=== PATIENT | female | born 1980 | race Caucasian/White ===

== ENCOUNTER 2017-02-22 12:58 | Emergency (ER) | payer MEDICAID ==
[2017-02-22 13:56] VITALS: BP 123/89
--- NOTE | 2017-02-22 14:10 | UC ---
Lower Extremity/Ankle HPI - HPI Summary HPI Summary: 36 y/o female with 1 days h/o itchy, red legs. H/o varicose veins s/p treatment several years ago, chronic leg swelling worse with standing at work. h/o VV treatment in past. recently treated for bed bugs in house, currently being fumigated. patient is to wear compression stockings at all time however is not able to wear them at work due to heat/ uncomfortable. no fever, chills. - History of Current Complaint Chief Complaint: UCSkin Stated Complaint: LEFT LEG SKIN COMPLAINT Time Seen by Provider: 02/22/17 13:56 Hx Obtained From: Patient Hx Last Menstrual Period: 02/21/17 Onset/Duration: Gradual Onset, Lasting Days Severity Initially: Moderate Severity Currently: Moderate - Allergies/Home Medications Allergies/Adverse Reactions: Allergies Allergy/AdvReac Type Severity Reaction Status Date / Time No Known Allergies Allergy Verified 02/22/17 13:50 PMH/Surg Hx/FS Hx/Imm Hx Previously Healthy: No - varicose veins - Surgical History Surgical History: None - Family History Known Family History: Negative: Diabetes - Social History Alcohol Use: None Substance Use Type: None Smoking Status (MU): Never Smoked Tobacco - Immunization History Most Recent Influenza Vaccination: [id number] Review of Systems Skin: Rash - b/l LEs Psychological: Anxious All Other Systems Reviewed And Are Negative: Yes Physical Exam Triage Information Reviewed: Yes Appearance: Well-Appearing, No Pain Distress, Well-Nourished Vital Signs: Initial Vital Signs Temp 98.4 F 02/22/17 13:52 Pulse 92 02/22/17 13:52 Resp 16 02/22/17 13:52 BP 123/89 02/22/17 13:52 Pulse Ox 97 02/22/17 13:52 Vital Signs Reviewed: Yes Skin: Positive: Other - significany varicose veins b/l LE's with 1+ pitting edema b/l. several areas of erythema, blanching, with associated warmth. no weeping/ drainage noted. PT, DP 2+ b/l, neg homans b/l , Full ROM ankle joint. Lower Extremity Course/Dx - Course Course Of Treatment: LE cellulitis likley d/t venous insufficiency. referal to vascular surgeon vs IR due to patient description of VV extending to upper thigh/ genitalia and severeity. ABX tx - Differential Dx/Diagnosis Differential Diagnosis/HQI/PQRI: Cellulitis, Compartment Syndrome, Infection, Osteomyelitis, Tendonitis Provider Diagnoses: cellulitis, venous insufficiency Discharge - Discharge Plan Condition: Good Disposition: HOME Prescriptions: Cephalexin CAP* [Keflex CAP*] 500 mg PO TID #21 cap Patient Education Materials: Cellulitis (ED), Peripheral Vascular Disease (ED) Forms: *Work Release Referrals: Victorina Park PA [Primary Care Provider] - Andrea Burroughs MD [Medical Doctor] - (Follow up for venous insufficiency, pelvic congestion evaluation ) Additional Instructions: - Elevate legs x 48 hours - Wear compression stockings at all times when standing - Follow up with vascular or interventional radiologist with regards to vein treatments - ANtibiotics as directed for cellulitis - benadryl as needed for itching
== END 2017-02-22 14:25 | disposition home or self-care (01) ==
LOC: UCCORT 12:58
DX: L03.116 Cellulitis of left lower limb (principal); L03.115 Cellulitis of right lower limb; I87.2 Venous insufficiency (chronic) (peripheral); I83.93 Asymptomatic varicose veins of bilateral lower extremities
CPT/HCPCS: 99212; G0463

== ENCOUNTER 2019-07-19 13:04 | Emergency (ER) | payer MEDICAID ==
[2019-07-19 14:16] VITALS: BP 101/57
--- NOTE | 2019-07-19 14:38 | UC ---
Abdominal Pain Female HPI - HPI Summary HPI Summary: 39-year-old female with developmental delay presents with mother reporting onset of fever and right sided abdominal and flank pain yesterday. Temperature at home of 103 F. Denies chest pain, shortness of breath, cough, nausea, vomiting, diarrhea, dysuria, frequency, urgency, hematuria, or vaginal discharge. - History of Current Complaint Chief Complaint: UCAbdominalPain Stated Complaint: LOWER BACK/ABD PAIN,FEVER Time Seen by Provider: 07/19/19 14:25 Hx Obtained From: Patient Hx Last Menstrual Period: 07/09/19 Pain Intensity: 10 Allergies/Adverse Reactions: Allergies Allergy/AdvReac Type Severity Reaction Status Date / Time No Known Allergies Allergy Verified 02/22/17 13:50 PMH/Surg Hx/FS Hx/Imm Hx Respiratory History: Asthma GI/ History: Gastroesophageal Reflux - Surgical History Surgical History: Yes Surgery Procedure, Year, and Place: Bowel obstruction as a child. appendectomy 1994. polyps on throat removed - Family History Known Family History: Positive: Other - Gall bladder disease. - Social History Occupation: Employed Full-time Lives: Alone Alcohol Use: None Substance Use Type: None Smoking Status (MU): Never Smoked Tobacco - Immunization History Most Recent Influenza Vaccination: [id number] Review of Systems All Other Systems Reviewed And Are Negative: Yes Constitutional: Positive: Fever, Chills, Fatigue Skin: Negative: Rash ENT: Negative: Sore Throat, Ear Ache, Nasal Discharge, Sinus Congestion, Sinus Pain/Tenderness Respiratory: Negative: Shortness Of Breath, Cough Cardiovascular: Negative: Chest Pain Gastrointestinal: Positive: Abdominal Pain. Negative: Vomiting, Diarrhea, Nausea Genitourinary: Negative: Dysuria, Hematuria, Frequency, Urgency, Vaginal/Penile Discharge Musculoskeletal: Positive: Negative Neurological: Positive: Negative Is Patient Immunocompromised?: No Physical Exam - Summary Physical Exam Summary: GENERAL APPEARANCE: Well developed, well nourished, alert and cooperative, and appears to be in no acute distress. EYES: Conjunctiva clear. No drainage. EARS: External auditory canals and tympanic membranes clear, hearing grossly intact. NOSE: No nasal discharge. THROAT: Pharynx normal. No tonsilar inflammation, swelling, exudate, or lesions. Uvula midline. NECK: Neck supple, non-tender without lymphadenopathy. CARDIAC: Normal S1 and S2. No S3, S4 or murmurs. Rhythm is regular. There is no peripheral edema, cyanosis or pallor. Extremities are warm and well perfused. Capillary refill is less than 2 seconds. Peripheral pulses intact. LUNGS: Clear to auscultation without rales, rhonchi, wheezing or diminished breath sounds. ABDOMEN: Positive bowel sounds. Soft, nondistended. RUQ and RLQ tenderness without guarding or rebound. No masses or hepatosplenomegally. No CVA tenderness. MUSKULOSKELETAL: ROM intact to all extremities. No joint erythema or tenderness. Normal muscular development. Normal gait. SKIN: Skin normal color, texture and turgor with no lesions or eruptions. Triage Information Reviewed: Yes Vital Signs: Initial Vital Signs Temp 101.8 F 07/19/19 14:07 Pulse 156 07/19/19 14:07 Resp 16 07/19/19 14:07 BP 101/57 07/19/19 14:07 Pulse Ox 95 07/19/19 14:07 Vital Signs Reviewed: Yes Abd Pain Female Course/Dx - Course Course Of Treatment: 39-year-old female with developmental delay presents with mother reporting onset of fever and right sided abdominal and flank pain yesterday. Temperature at home of 103 F. Denies chest pain, shortness of breath, cough, nausea, vomiting, diarrhea, dysuria, frequency, urgency, hematuria, or vaginal discharge. Patient had an elevated temperature of 101.8 F and was tachycardic at a rate of 158. Vital signs were otherwise stable. Patient had a soft nondistended abdomen with tenderness to the right upper and right lower quadrants without guarding or rebound. No CVA tenderness. Discussed with the patient and mother at that with the high fever, tachycardia, and abdominal tenderness I am recommending further evaluation in the ER at this time as I cannot fully evaluate her symptoms at this facility. Patient is agreeable to this and is electing to transport via private vehicle with her mother driving. - Differential Dx/Diagnosis Differential Diagnosis: Gall Bladder Disease, Urinary Tract Infection, Other - gastroenteritis, tuboovarian abscess, sepsis Provider Diagnosis: Fever, Right sided abdominal pain Discharge ED - Sign-Out/Discharge Documenting (check all that apply): Patient Departure All imaging exams completed and their final reports reviewed: No Studies - Discharge Plan Condition: Stable Disposition: HOME-RECOMMEND TO ED Referrals: Radames Raza MD [Primary Care Provider] - Additional Instructions: With your high fever, fast heart rate, and abdominal pain I am recommending that you be evaluated in the emergency room at this time. Go directly to the emergency room from here. Do not eat or drink anything until you have been evaluated. - Billing Disposition and Condition Condition: STABLE Disposition: Home-Recommend to ED - Attestation Statements Provider Attestation: This patient was not seen by me I was available for consult Chart reviewed LIV
== END 2019-07-19 14:51 | disposition home health service (06) ==
LOC: UCCORT 13:04
DX: R50.9 Fever, unspecified (principal); R10.31 Right lower quadrant pain; R10.11 Right upper quadrant pain; J45.909 Unspecified asthma, uncomplicated
CPT/HCPCS: 99212; G0463

== ENCOUNTER 2022-03-26 05:52 | Inpatient (IN) ==
[2022-03-26 06:38] LABS: Hematocrit 35 % (35-47); Hemoglobin 11.9 g/dL (12.0-16.0); Mean Corpuscular HGB Conc 34 g/dL (31-36); Mean Corpuscular Hemoglobin 30 pg (27-31); Mean Corpuscular Volume 87 fL (80-97); Mean Platelet Volume 8.1 fL (7.4-10.4); Platelet Count 202 10^3/uL (150-450); Red Blood Count 4.03 10^6 /uL (3.70-4.87); Red Cell Distribution Width 15 % (10-15); White Blood Count 10.3 10^3/uL (3.5-10.8)
[2022-03-26] MEDS ORDERED: Oxytocin 10 UNITS/ML 1 ML VIAL ONE ×2 (07:18→09:58)
[2022-03-26] MEDS ORDERED: Dexamethasone IV 4 MG/ML VIAL 1 ml VIAL ONE (07:18)
[2022-03-26] MEDS ORDERED: Morphine PF AMP (0.5MG/ML) 5 MG/10 ML AMP ONE (07:18)
[2022-03-26] MEDS ORDERED: fentaNYL 100 mcg/2 ml 50 MCG/ML VIAL ONE (07:18)
[2022-03-26] MEDS ORDERED: Ondansetron 4 mg VIAL 2 MG/ML 2 ml VIAL ONE (07:18)
[2022-03-26] MEDS ORDERED: Sodium Citrate/Citric Acid LIQ 15 ML UDC PO ONE (07:33)
[2022-03-26] MEDS ORDERED: ceFOXitin 2 GM PREMIX 50 ML IVPB ONE (08:00)
[2022-03-26] MEDS ORDERED: Phenylephrine 40 mcg/mL 10mL (400mcg) SYRINGE ONE ×2 (08:10→09:11)
[2022-03-26] MEDS ORDERED: Clindamycin 900 MG/D5W BAG 900 MG/50 ML BAG IVPB ONE ×2 (08:34→11:07)
[2022-03-26] MEDS ORDERED: NS 0.9% IVPB ONE (09:00)
[2022-03-26] MEDS ORDERED: GENTAMICIN ADULT IVPB ONE (09:00)
[2022-03-26] MEDS ORDERED: Acetaminophen IV 1 GM/100ML 1,000 MG/100 ML BAG IV ONE (09:58)
[2022-03-26] MEDS ORDERED: Witch Hazel PAD JAR TOPICAL PRN (10:37)
[2022-03-26] MEDS ORDERED: Glycerin ADULT 2.4 gm SUPP PR PRN (10:37)
[2022-03-26] MEDS ORDERED: Dibucaine 1% OINT 28.35 GM TUBE PR PRN (10:37)
[2022-03-26] MEDS ORDERED: Lactated Ringers 1000 ml BAG 1,000 ML IV SCH (11:00)
[2022-03-26 12:27] LABS: Urine Benzodiazepine Screen None Detected (None Detect); Urine Opiates Screen None Detected (None Detect)
[2022-03-26 12:28] LABS: Urine Appearance Clear; Urine Bilirubin Negative (Negative); Urine Blood Negative (Negative); Urine Color Yellow; Urine Glucose Negative (Negative); Urine Ketones Negative (Negative); Urine Specific Gravity 1.015 (1.005-1.030)
[2022-03-26 12:29] LABS: Urine Nitrite Negative (Negative); Urine Protein Negative (Negative); Urine Urobilinogen 0.2 (Negative) (Negative)
[2022-03-26 12:48] LABS: Activated Partial Thrombo Time 26.8 seconds (26.0-38.0); INR 0.91 (0.89-1.11)
[2022-03-26 12:53] LABS: Hematocrit 35 % (35-47); Hemoglobin 11.3 g/dL (12.0-16.0); Mean Corpuscular HGB Conc 33 g/dL (31-36); Mean Corpuscular Hemoglobin 28 pg (27-31); Mean Corpuscular Volume 86 fL (80-97); Mean Platelet Volume 7.8 fL (7.4-10.4); Platelet Count 191 10^3/uL (150-450); Red Blood Count 4.04 10^6 /uL (3.70-4.87); Red Cell Distribution Width 15 % (10-15); White Blood Count 16.7 10^3/uL (3.5-10.8)
[2022-03-26] MEDS ORDERED: Naloxone 0.4 mg VIAL 0.4 mg/ml 1 ml VIAL IV PUSH PRN (14:21)
[2022-03-26] MEDS ORDERED: Acetaminophen IV 1 GM/100ML 1,000 MG/100 ML BAG IV PRN (14:21)
[2022-03-26] MEDS ORDERED: Ondansetron 4 mg VIAL 2 MG/ML 2 ml VIAL IV PRN (14:21)
[2022-03-26] MEDS ORDERED: Metoclopramide 5 MG/ML VIAL (10 mg) IV PRN (14:21)
[2022-03-27 06:41] LABS: ABS Eosinophils 0.1 10^3/ul (0-0.6); ABS Monocytes 0.9 10^3/ul (0-0.8); ABS Neutrophils 10.3 10^3/ul (1.5-7.7); Eosinophil % 0.7 %; Hematocrit 28 % (35-47); Hemoglobin 9.6 g/dL (12.0-16.0); Lymphocyte % 8.2 %; Mean Corpuscular HGB Conc 34 g/dL (31-36); Mean Corpuscular Hemoglobin 29 pg (27-31); Mean Corpuscular Volume 86 fL (80-97); Mean Platelet Volume 7.8 fL (7.4-10.4); Platelet Count 164 10^3/uL (150-450); Red Blood Count 3.28 10^6 /uL (3.70-4.87); Red Cell Distribution Width 14 % (10-15); White Blood Count 12.3 10^3/uL (3.5-10.8)
[2022-03-28] MEDS ORDERED: Lorazepam PYXIS KEY PRN (08:53)
[2022-03-28] MEDS ORDERED: LORazepam 2 mg VIAL 1 ml IV PUSH ONE (08:53)
[2022-03-28] MEDS ORDERED: Ondansetron 4 mg VIAL 2 MG/ML 2 ml VIAL IV ONE (08:54)
[2022-03-28] MEDS ORDERED: Lactated Ringers 1000 ml BAG 1,000 ML IV SCH (09:00)
[2022-03-28 13:55] LABS: ABS Eosinophils 0.1 10^3/ul (0-0.6); ABS Lymphocytes 0.7 10^3/ul (1.0-4.8); ABS Monocytes 0.6 10^3/ul (0-0.8); ABS Neutrophils 7.6 10^3/ul (1.5-7.7); Eosinophil % 0.7 %; Hematocrit 29 % (35-47); Hemoglobin 9.8 g/dL (12.0-16.0); Lymphocyte % 8.2 %; Mean Corpuscular HGB Conc 34 g/dL (31-36); Mean Corpuscular Hemoglobin 29 pg (27-31); Mean Corpuscular Volume 85 fL (80-97); Mean Platelet Volume 7.6 fL (7.4-10.4); Platelet Count 210 10^3/uL (150-450); Red Blood Count 3.34 10^6 /uL (3.70-4.87); Red Cell Distribution Width 15 % (10-15)
[2022-03-28] MEDS: Acetaminophen IV 1 GM/100ML 1,000 MG/100 ML BAG IV SCH ×2 (14:09→22:13)
[2022-03-28 14:32] LABS: Calcium 8.7 mg/dL (8.6-10.3); Potassium 3.7 mmol/L (3.5-5.0); eGFR CKD-EPI 114.4 (>60)
[2022-03-28] MEDS: Ondansetron 4 mg VIAL 2 MG/ML 2 ml VIAL IV PRN ×2 (15:00→20:50)
[2022-03-29] MEDS: Acetaminophen IV 1 GM/100ML 1,000 MG/100 ML BAG IV SCH ×2 (06:37→14:30)
[2022-03-30 12:16] VITALS: BP 149/79
[2022-03-30] MEDS ORDERED: Tetan/Diph/Pertus SYR(Tdap) 0.5 ML SYR(BOOSTRIX) use SYR contains LATEX IM ONE (13:16)
== END 2022-03-30 16:00 | disposition home or self-care (01) | DRG 540 ==
LOC: MCHOB 05:52
PROVIDERS: ADMIT Obstetrics & Gynecology; ATTEND Obstetrics & Gynecology